=== PATIENT | female | born 1970 | race African-American/Black ===

== ENCOUNTER 2017-12-19 21:16 | Inpatient (IN) | payer OTHER ==
[2017-12-19 21:54] VITALS: BMI 60.8
--- NOTE | 2017-12-19 22:12 | HP ---
COWS - Scale Resting Pulse: 2= CT 101-120 Sweatin= Chills/Flushing Restless Observation: 1= Difficult to Sit Still Pupil Size: 1= Pupils >than Normal Bone or Joint Aches: 4=Acute Joint/Muscle Pain Runny Nose/ Eye Tearin= Nasal Congestion GI Upset > 30mins: 1= Stomach Cramp Tremor Observation: 2= Slight Tremor Visible Yawning Observation: 1= 1-2x During Session Anxiety or Irritability: 2=Irritable/Anxious Goose Flesh Skin: 0=Smooth Skin COWS Score: 16 Admission ROS S - HPI Chief Complaint: C/O WITHDRAWAL SX'S. SEEKING DETOX FOR HEROIN DEPENDENCE Allergies/Adverse Reactions: Allergies Allergy/AdvReac Type Severity Reaction Status Date / Time No Known Allergies Allergy Verified 12/19/17 22:06 History of Present Illness: 47 Y.O. FEMALE WITH HX/O OPIOID DEPENDENCE SEEKING DETOX. CLIENT WAS REFERRED BY [facility] AFTER PRESENT THERE FOR DETOX AND THEY WERE FULL. UTOX POSITIVE FOR MTD BUT CLIENT DENIES MMTP. STATES TOOK STREET METHADONE A FEW DAYS BACK. REPORTS LONGEST CLEAN TIME 5 YEARS. Exam Limitations: No Limitations - Ebola screening Have you traveled outside of the country in the last 21 days: No Have you had contact with anyone from an Ebola affected area: No Have you been sick,other than usual withdrawal symptoms: No Do you have a fever: No - Review of Systems Constitutional: Chills, Loss of Appetite, Malaise, Night Sweats, Changes in sleep EENT: reports: Nose Congestion, Dental Problems (MISSING TEETH) Respiratory: reports: No Symptoms reported Cardiac: reports: No Symptoms Reported GI: reports: Poor Appetite, Poor Fluid Intake, Abdominal cramping : reports: No Symptoms Reported Musculoskeletal: reports: Back Pain, Joint Pain, Neck Pain Integumentary: reports: No Symptoms Reported Neuro: reports: Headache Endocrine: reports: No Symptoms Reported Hematology: reports: No Symptoms Reported Psychiatric: reports: Depressed (DENIES SI/HI) Other Systems: Reviewed and Negative Patient History - Patient Medical History Hx Anemia: No Hx Asthma: No Hx Chronic Obstructive Pulmonary Disease (COPD): No Hx Cancer: No Hx Cardiac Disorders: No Hx Congestive Heart Failure: No Hx Hypertension: No Hx Hypercholesterolemia: No Hx Pacemaker: No HX Cerebrovascular Accident: No Hx Seizures: No Hx Dementia: No Hx Diabetes: No Hx Gastrointestinal Disorders: No Hx Liver Disease: No Hx Genitourinary Disorders: No Hx Sexually Transmitted Disorders: Yes (CHLAMYDIA TX'ED 1993) Hx Renal Disease (ESRD): No Hx Thyroid Disease: No Hx Human Immunodeficiency Virus (HIV): No Hx Hepatitis C: No Hx Depression: No Hx Suicide Attempt: No Hx Bipolar Disorder: No Hx Schizophrenia: No Other Medical History: FEELS DEPRESSED - Patient Surgical History Hx Section: Yes (X 1) Anesthesia Reaction: No - PPD History Previous Implant?: Yes Documented Results: Negative w/o proof Implanted On Prior R Admission?: No PPD to be Administered?: Yes - Reproductive History Patient is a Female of Child Bearing Age (11 -55 yrs old): Yes Last Menstrual Period: 11/10/17 LMP comment: IRREG Patient : No (NEG [facility] [place]) - Smoking Cessation Smoking history: Current every day smoker Have you smoked in the past 12 months: Yes Aproximately how many cigarettes per day: 5 Cigars Per Day: 0 Hx Chewing Tobacco Use: No Initiated information on smoking cessation: Yes 'Breaking Loose' booklet given: 12/19/17 - Substance & Tx. History Hx Alcohol Use: No Hx Substance Use: Yes Substance Use Type: Heroin Hx Substance Use Treatment: Yes ([facility]) - Substances Abused HEROIN Route: Inhalation Frequency: Daily Amount used: 5 BAGS Age of first use: 30 Date of Last Use: 12/19/17 Family Disease History - Family Disease History Family Disease History: Diabetes: Mother, Other: Father ( FROM GI ISSUES ) Admission Physical Exam BHS - Vital Signs Vital Signs: Vital Signs - 24 hr 12/19/17 21:48 Temperature 97 F L Pulse Rate 106 H Respiratory 18 Rate Blood Pressure 124/72 - Physical General Appearance: Yes: Appropriately Dressed, Tremorous, Other (MORBIDLY OBESE ) HEENTM: Yes: EOMI, Normocephalic, Normal Voice, MARTA, Pharynx Normal, Nasal Congestion, Other (MISSING TEETH) Respiratory: Yes: Chest Non-Tender, Lungs Clear, Normal Breath Sounds, No Respiratory Distress, No Accessory Muscle Use Neck: Yes: No masses,lesions,Nodules, Supple, Trachea in good position Breast: Yes: Breast Exam Deferred Cardiology: Yes: Regular Rhythm, S1, S2, Tachycardia Abdominal: Yes: Normal Bowel Sounds, Non Tender, Soft, Protuberent (GROSSLY) Genitourinary: Yes: Other (NO C/O) Back: Yes: Normal Inspection Musculoskeletal: Yes: full range of Motion, Gait Steady Extremities: Yes: Normal Capillary Refill, Normal Range of Motion, Non-Tender, Tremors 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, Fully Oriented, Alert, Motor Strength 5/5 Integumentary: Yes: Normal Color, Dry, Warm, Other (HYPERPIGMENTED PATCHES OF SKIN NOTED TO BLE) Lymphatic: Yes: Within Normal Limits - Diagnostic (1) Opioid dependence with withdrawal Current Visit: Yes Status: Chronic (2) Nicotine dependence Current Visit: Yes Status: Chronic Qualifiers: Nicotine product type: cigarettes Substance use status: uncomplicated Qualified Code(s): F17.210 - Nicotine dependence, cigarettes, uncomplicated (3) Morbidly obese Current Visit: Yes Status: Chronic Cleared for Admission [facility] - Detox or Rehab [facility] Level of Care: Medically Managed Detox Regimen/Protocol: Methadone Claeared for Rehab Admission: No S Breath Alcohol Content Breath Alcohol Content: 0 Urine Pregancy Test - Result Urine Test Results: Negative- NO Line Present Urine Drug Screen - Results Drug Screen Negative: No Urine Drug Screen Results: OPI-Opiates, MTD-Methadone, OXY-Oxycodone
[2017-12-19] MEDS ORDERED: IBUPROFEN 400 MG TABLET (FP) PO PRN (22:32)
[2017-12-19] MEDS ORDERED: MAGNESIUM CITRATE 300 ML BOTTLE PO PRN (22:32)
[2017-12-19] MEDS ORDERED: P-EPHED 60MG/TRIPROLIDI 2.5MG TABLET PO PRN (22:32)
[2017-12-19] MEDS ORDERED: MAG HYDROX/AL HYDROX/SIMETH 30 ML UNIT-DOSE CUP PO PRN (22:32)
[2017-12-19] MEDS ORDERED: ACETAMINOPHEN 325 MG TABLET (FP) PO PRN (22:32)
[2017-12-19] MEDS ORDERED: METHADONE HCL 10 MG TABLET (FOR DETOX USE ONLY) PO ONE ×2 (22:32→23:00)
[2017-12-19] MEDS ORDERED: MENTHOL/PHENOL 1 EACH UD MM PRN (22:32)
[2017-12-19] MEDS ORDERED: MAGNESIUM HYDROX 2400MG/30ML ORAL SUSPENSION 30 ML CUP PO PRN (22:32)
[2017-12-19] MEDS ORDERED: guaiFENesin/D-METHORPHAN HB 10 ML UNIT-DOSE CUPS PO PRN (22:32)
[2017-12-19] MEDS ORDERED: LOPERAMIDE HCL 2 MG CAPSULE PO PRN (22:32)
[2017-12-19] MEDS ORDERED: NICOTINE POLACRILEX 2 MG GUM BUC PRN (22:37)
[2017-12-19] MEDS: diazePAM 5 MG TABLET PO PRN (23:44)
[2017-12-20] MEDS: diazePAM 5 MG TABLET PO PRN (07:54)
--- NOTE | 2017-12-20 09:10 | CONSULT ---
[facility] Psychiatric Consult - Data Date of interview: 12/20/17 Admission source: [facility] Identifying data: This is 47 years old female, single, homeless, unemployed, on PA, with history of Opioids and Nicotine depednence, looking for detoxification protocol. Substance Abuse History: - Smoking Cessation. Smoking history: Current every day smoker. Have you smoked in the past 12 months: Yes. Aproximately how many cigarettes per day: 5. Cigars Per Day: 0. Hx Chewing Tobacco Use: No. Initiated information on smoking cessation: Yes. 'Breaking Loose' booklet given : 12/19/17. - Substance & Tx. History. Hx Alcohol Use: No. Hx Substance Use: Yes. Substance Use Type: Heroin. Hx Substance Use Treatment: Yes ([facility]). - Substances Abused. HEROIN. Route: Inhalation. Frequency: Daily. Amount used: 5 BAGS. Age of first use: 30. Date of Last Use: 12/19/17 Medical History: Obesity Psychiatric History: Patient reports history of depression anhd anxiety, reports taking prior to admission: Trazodone 150mg po qhs. Ambien 10mg po qhs Physical/Sexual Abuse/Trauma History: Denies, unclear Additional Comment: Trazodone 150mg po qhs. Ambien 10mg po qhs Mental Status Exam - Mental Status Exam Alert and Oriented to: Person Cognitive Function: Fair Patient Appearance: Unkempt Mood: Sad Affect: Flat Patient Behavior: Sedated Speech Pattern: Delayed Voice Loudness: Moderately Soft/Quiet Thought Process: Circumstantial Thought Disorder: Being Controlled Hallucinations: Denies Suicidal Ideation: Denies Homicidal Ideation: Denies Insight/Judgement: Fair Sleep: Difficulty falling asleep Appetite: Weight gain Muscle strength/Tone: Mild Hypotonicity Gait/Station: Shuffling Additional Comments: Trazodone 150mg po qhs. Ambien 10mg po qhs Psychiatric Findings - Problem List ([place] 1, 2,3) (1) Drug-induced mood disorder Current Visit: Yes Status: Acute (2) Nicotine dependence Current Visit: Yes Status: Chronic Qualifiers: Nicotine product type: cigarettes Substance use status: uncomplicated Qualified Code(s): F17.210 - Nicotine dependence, cigarettes, uncomplicated (3) Opioid dependence with withdrawal Current Visit: Yes Status: Chronic - Initial Treatment Plan Initial Treatment Plan: Trazodone 150mg po qhs. Ambien 10mg po qhs
--- NOTE | 2017-12-20 09:40 | PN ---
BHS COWS - Scale Resting Pulse: 0= [place] 80 or Below Sweatin= Chills/Flushing Restless Observation: 3= Extraneous Movement Pupil Size: 1= Pupils >than Normal Bone or Joint Aches: 2= Severe Diffuse Aches Runny Nose/ Eye Tearin= Runny Nose/Eyes GI Upset > 30mins: 2= Nausea/Diarrhea Tremor Observation of Outstretched Hands: 2= Slight Tremor Visible Yawning Observation: 1= 1-2x During Session Anxiety or Irritability: 2=Irritable/Anxious Goose Flesh Skin: 0=Smooth Skin COWS Score: 16 BHS Progress Note (SOAP) Subjective: ALERT,IRRITABLE,ANXIOUS,INTERRUPTED SLEEP,TREMOR,PAIN IN THE BODY,BACK, EXTREMITIES Objective: 12/20/17 09:38 Vital Signs Temperature 98.1 F 12/20/17 06:00 Pulse Rate 78 12/20/17 06:00 Respiratory Rate 20 12/20/17 06:00 Blood Pressure 104/56 12/20/17 06:00 O2 Sat by Pulse Oximetry (%) EKG SINUS TACHYCARDIA WITH OCCASIONAL VPC NO CHEST PAIN,NO SOB,NO DIZZINESS LABS PENDING Assessment: 12/20/17 09:39 WITHDRAWAL SYMPTOM Plan: CONTINUE DETOX
[2017-12-20] MEDS ORDERED: METHADONE HCL 10 MG TABLET (FOR DETOX USE ONLY) PO ONE (10:00)
[2017-12-20 10:09] LABS: HEMATOCRIT 41.5 % (32.4-45.2); HEMOGLOBIN 13.8 GM/dL (10.7-15.3); MCH 29.7 pg (25.7-33.7); MCHC 33.2 g/dl (32.0-36.0); MEAN CELL VOLUME 89.3 fl (80-96); MEAN PLT VOLUME 8.6 fl (7.5-11.1); PLATELET COUNT 234 K/MM3 (134-434); RBC 4.64 M/mm3 (3.60-5.2); RDW 14.2 % (11.6-15.6); WHITE BLOOD COUNT 7.3 K/mm3 (4.0-10.0)
[2017-12-20 10:25] LABS: CHLORIDE 105 mmol/L (98-107); POTASSIUM 3.8 mmol/L (3.5-5.1); SODIUM 142 mmol/L (136-145)
[2017-12-20 10:29] LABS: ALBUMIN 3.4 g/dl (3.4-5.0); ALK PHOS 82 U/L (45-117); ANION GAP 10 (8-16); BILIRUBIN,TOTAL 0.6 mg/dL (0.2-1.0); BLOOD UREA NITROGEN 17 mg/dL (7-18); CALCIUM 8.3 mg/dL (8.5-10.1); CO2 27 mmol/L (21-32); CREATININE 1.6 mg/dL (0.55-1.02); GLUCOSE,RANDOM 98 mg/dL (74-106); SGOT/AST 11 U/L (15-37); SGPT/ALT 9 U/L (12-78); TOT PROT 6.6 g/dl (6.4-8.2)
[2017-12-20] MEDS: CYCLOBENZAPRINE HCL 10 MG TABLET (FP) PO PRN (10:47)
[2017-12-20] MEDS: NICOTINE 14 MG/24 HOURS TOPICAL PATCH TD SCH (10:47)
[2017-12-20] MEDS: PRENATAL VITAMINS W/ FOLIC ACID TABLET (FP) PO SCH (10:47)
[2017-12-20] MEDS: cloNIDine HCL 0.1 MG TABLET PO SCH ×2 (10:47→22:18)
[2017-12-20] MEDS ORDERED: PNEUMOCOCCAL 23 VACCINE 0.5 ML VIAL IM ONE (12:00)
[2017-12-20] MEDS ORDERED: FLU VACCINE QUAD 60 MCG/0.5 ML (MDV 17-18) IM ONE (12:00)
[2017-12-20] MEDS ORDERED: PNEUMOC 13-VAL CONJ-DIP CRM/PF 0.5 ML DISP.SYRIN IM ONE (12:00)
--- NOTE | 2017-12-20 16:45 | EKG ---
Test Reason : Blood Pressure : / mmHG Vent. Rate : 104 BPM Atrial Rate : 104 BPM P-R Int : 158 ms QRS Dur : 112 ms QT Int : 378 ms P-R-T Axes : 086 016 042 degrees QTc Int : 497 ms SINUS TACHYCARDIA WITH OCCASIONAL PREMATURE VENTRICULAR COMPLEXES BIATRIAL ENLARGEMENT PULMONARY DISEASE PATTERN SEPTAL INFARCT , AGE UNDETERMINED ABNORMAL ECG NO PREVIOUS ECGS AVAILABLE Confirmed by VANESA HALL MD ([id number]) on 12/20/2017 4:44:36 PM Referred By: Confirmed By:VANESA HALL MD
[2017-12-20] MEDS: traZODone HCL 50 MG TABLET (FP) PO SCH (22:18)
[2017-12-20] MEDS: THIAMINE HCL 100 MG TABLET (FP) PO SCH (22:18)
--- NOTE | 2017-12-21 09:42 | PN ---
BHS COWS - Scale Resting Pulse: 0= [place] 80 or Below Sweatin= Chills/Flushing Restless Observation: 3= Extraneous Movement Pupil Size: 1= Pupils >than Normal Bone or Joint Aches: 2= Severe Diffuse Aches Runny Nose/ Eye Tearin= Runny Nose/Eyes GI Upset > 30mins: 3= Vomiting/Diarrhea Tremor Observation of Outstretched Hands: 2= Slight Tremor Visible Yawning Observation: 2= >3x During Session Anxiety or Irritability: 2=Irritable/Anxious Goose Flesh Skin: 0=Smooth Skin COWS Score: 18 BHS Progress Note (SOAP) Subjective: ALERT,IRRITABLE,ANXIOUS,INTERRUPTED SLEEP,PAIN IN THE BODY AND BACK Objective: 12/21/17 09:46 Vital Signs Temperature 97.5 F L 12/21/17 06:00 Pulse Rate 73 12/21/17 06:00 Respiratory Rate 18 12/21/17 06:30 Blood Pressure 132/77 12/21/17 06:00 O2 Sat by Pulse Oximetry (%) 12/21/17 09:46 Laboratory Last Values WBC 7.3 K/mm3 (4.0-10.0) 12/20/17 08:00 RBC 4.64 M/mm3 (3.60-5.2) 12/20/17 08:00 Hgb 13.8 GM/dL (10.7-15.3) 12/20/17 08:00 Hct 41.5 % (32.4-45.2) 12/20/17 08:00 MCV 89.3 fl (80-96) 12/20/17 08:00 MCH 29.7 pg (25.7-33.7) 12/20/17 08:00 MCHC 33.2 g/dl (32.0-36.0) 12/20/17 08:00 RDW 14.2 % (11.6-15.6) 12/20/17 08:00 Plt Count 234 K/MM3 (134-434) 12/20/17 08:00 MPV 8.6 fl (7.5-11.1) 12/20/17 08:00 Sodium 142 mmol/L (136-145) 12/20/17 08:00 Potassium 3.8 mmol/L (3.5-5.1) 12/20/17 08:00 Chloride 105 mmol/L (98-107) 12/20/17 08:00 Carbon Dioxide 27 mmol/L (21-32) 12/20/17 08:00 Anion Gap 10 (8-16) 12/20/17 08:00 BUN 17 mg/dL (7-18) 12/20/17 08:00 Creatinine 1.6 mg/dL (0.55-1.02) H 12/20/17 08:00 Creat Clearance w eGFR 34.55 (>60) 12/20/17 08:00 Random Glucose 98 mg/dL (74-106) 12/20/17 08:00 Calcium 8.3 mg/dL (8.5-10.1) L 12/20/17 08:00 Total Bilirubin 0.6 mg/dL (0.2-1.0) 12/20/17 08:00 AST 11 U/L (15-37) L 12/20/17 08:00 ALT 9 U/L (12-78) L 12/20/17 08:00 Alkaline Phosphatase 82 U/L (45-117) 12/20/17 08:00 Total Protein 6.6 g/dl (6.4-8.2) 12/20/17 08:00 Albumin 3.4 g/dl (3.4-5.0) 12/20/17 08:00 RPR Titer Nonreactive (NONREACTIVE) 12/20/17 08:00 Hep C Ab Diagnostic <0.1 s/co ratio (0.0-0.9) 12/20/17 08:00 Assessment: 12/21/17 09:47 WITHDRAWAL SYMPTOM Plan: CONTINUE DETOX,ENCOURAGE ORAL FLUID,REPEAT BMP IN AM
[2017-12-21] MEDS ORDERED: METHADONE HCL 5 MG TABLET (FOR DETOX USE ONLY) PO ONE (10:00)
[2017-12-21] MEDS: IBUPROFEN 600 MG TABLET (FP) PO PRN (11:12)
[2017-12-21] MEDS: CYCLOBENZAPRINE HCL 10 MG TABLET (FP) PO PRN ×2 (11:12→22:34)
[2017-12-21] MEDS: PRENATAL VITAMINS W/ FOLIC ACID TABLET (FP) PO SCH (11:12)
[2017-12-21] MEDS: cloNIDine HCL 0.1 MG TABLET PO SCH ×2 (11:13→22:34)
[2017-12-21] MEDS: NICOTINE 14 MG/24 HOURS TOPICAL PATCH TD SCH (11:21)
[2017-12-21] MEDS: diazePAM 5 MG TABLET PO PRN ×2 (14:00→22:34)
[2017-12-21 15:17] LABS: URINE APPEARANCE CLEAR; URINE BILIRUBIN NEGATIVE (NEGATIVE); URINE BLOOD 1+ (NEGATIVE); URINE COLOR YELLOW; URINE GLUCOSE (UA) NEGATIVE (NEGATIVE); URINE KETONE NEGATIVE (NEGATIVE); URINE LEUK ESTERASE TRACE (NEGATIVE); URINE NITRITE POSITIVE (NEGATIVE); URINE PROTEIN NEGATIVE (NEGATIVE); URINE UROBILINOGEN NEGATIVE mg/dL (0.2-1.0)
[2017-12-21 15:47] LABS: EPI CELLS RARE /HPF (FEW); URINE BACTERIA MANY /hpf (NONE SEEN)
[2017-12-21] MEDS: traZODone HCL 50 MG TABLET (FP) PO SCH (22:33)
[2017-12-21] MEDS: THIAMINE HCL 100 MG TABLET (FP) PO SCH (22:33)
[2017-12-21] MEDS: ZOLPIDEM TARTRATE 10 MG TABLET (PARK CARE ONLY) PO PRN (22:34)
[2017-12-22] MEDS ORDERED: METHADONE HCL 5 MG TABLET (FOR DETOX USE ONLY) PO ONE (10:00)
--- NOTE | 2017-12-22 10:49 | PN ---
S Progress Note (SOAP) Subjective: ALERT,IRRITABLE,ANXIOUS,INTERRUPTED SLEEP,PAIN IN THE BODY AND BACK Objective: 12/22/17 10:48 Vital Signs Temperature 97.9 F 12/22/17 06:00 Pulse Rate 53 L 12/22/17 06:00 Respiratory Rate 18 12/22/17 06:30 Blood Pressure 146/66 12/22/17 06:00 O2 Sat by Pulse Oximetry (%) Assessment: 12/22/17 10:49 WITHDRAWAL SYMPTOM Plan: CONTINUE DETOX
[2017-12-22] MEDS: PRENATAL VITAMINS W/ FOLIC ACID TABLET (FP) PO SCH (11:16)
[2017-12-22] MEDS: diazePAM 5 MG TABLET PO PRN ×2 (11:18→15:42)
[2017-12-22] MEDS: CYCLOBENZAPRINE HCL 10 MG TABLET (FP) PO PRN (11:19)
[2017-12-22] MEDS: cloNIDine HCL 0.1 MG TABLET PO SCH ×2 (11:19→22:29)
[2017-12-22] MEDS: IBUPROFEN 600 MG TABLET (FP) PO PRN (11:21)
[2017-12-22] MEDS: NICOTINE 14 MG/24 HOURS TOPICAL PATCH TD SCH (11:23)
[2017-12-22] MEDS: LIDOCAINE 5% TOPICAL PATCH TP SCH (13:02)
[2017-12-22] MEDS: IBUPROFEN 400 MG TABLET (FP) PO PRN ×2 (13:50→22:31)
[2017-12-22] MEDS: ZOLPIDEM TARTRATE 10 MG TABLET (PARK CARE ONLY) PO PRN (22:29)
[2017-12-22] MEDS: traZODone HCL 50 MG TABLET (FP) PO SCH (22:30)
[2017-12-22] MEDS: THIAMINE HCL 100 MG TABLET (FP) PO SCH (22:30)
[2017-12-22] MEDS: LIDOCAINE PATCH REMOVAL MC SCH (22:34)
[2017-12-23] MEDS ORDERED: hydrOXYzine PAMOATE 50 MG CAPSULE (FP) PO ONE (01:05)
[2017-12-23] MEDS ORDERED: METHADONE HCL 10 MG TABLET (FOR DETOX USE ONLY) PO ONE (10:00)
[2017-12-23] MEDS: cloNIDine HCL 0.1 MG TABLET PO SCH ×2 (11:16→22:10)
[2017-12-23] MEDS: PRENATAL VITAMINS W/ FOLIC ACID TABLET (FP) PO SCH (12:27)
[2017-12-23] MEDS: IBUPROFEN 400 MG TABLET (FP) PO PRN ×2 (12:27→22:12)
[2017-12-23] MEDS: NICOTINE 14 MG/24 HOURS TOPICAL PATCH TD SCH (12:30)
[2017-12-23] MEDS: LIDOCAINE 5% TOPICAL PATCH TP SCH (12:30)
--- NOTE | 2017-12-23 14:21 | PN ---
BHS Progress Note (SOAP) Subjective: alert coherent speech slow changing position obese Objective: 12/23/17 14:20 Vital Signs Temperature 98.9 F 12/23/17 14:14 Pulse Rate 91 H 12/23/17 14:14 Respiratory Rate 16 12/23/17 14:14 Blood Pressure 114/56 12/23/17 14:14 O2 Sat by Pulse Oximetry (%) Laboratory Last Values WBC 7.3 K/mm3 (4.0-10.0) 12/20/17 08:00 RBC 4.64 M/mm3 (3.60-5.2) 12/20/17 08:00 Hgb 13.8 GM/dL (10.7-15.3) 12/20/17 08:00 Hct 41.5 % (32.4-45.2) 12/20/17 08:00 MCV 89.3 fl (80-96) 12/20/17 08:00 MCH 29.7 pg (25.7-33.7) 12/20/17 08:00 MCHC 33.2 g/dl (32.0-36.0) 12/20/17 08:00 RDW 14.2 % (11.6-15.6) 12/20/17 08:00 Plt Count 234 K/MM3 (134-434) 12/20/17 08:00 MPV 8.6 fl (7.5-11.1) 12/20/17 08:00 Sodium 142 mmol/L (136-145) 12/20/17 08:00 Potassium 3.8 mmol/L (3.5-5.1) 12/20/17 08:00 Chloride 105 mmol/L (98-107) 12/20/17 08:00 Carbon Dioxide 27 mmol/L (21-32) 12/20/17 08:00 Anion Gap 10 (8-16) 12/20/17 08:00 BUN 17 mg/dL (7-18) 12/20/17 08:00 Creatinine 1.6 mg/dL (0.55-1.02) H 12/20/17 08:00 Creat Clearance w eGFR 34.55 (>60) 12/20/17 08:00 Random Glucose 98 mg/dL (74-106) 12/20/17 08:00 Calcium 8.3 mg/dL (8.5-10.1) L 12/20/17 08:00 Total Bilirubin 0.6 mg/dL (0.2-1.0) 12/20/17 08:00 AST 11 U/L (15-37) L 12/20/17 08:00 ALT 9 U/L (12-78) L 12/20/17 08:00 Alkaline Phosphatase 82 U/L (45-117) 12/20/17 08:00 Total Protein 6.6 g/dl (6.4-8.2) 12/20/17 08:00 Albumin 3.4 g/dl (3.4-5.0) 12/20/17 08:00 Urine Color Yellow 12/21/17 11:20 Urine Appearance Clear 12/21/17 11:20 Urine pH 5.0 (5.0-8.0) 12/21/17 11:20 Ur Specific Burns 1.012 (1.001-1.035) 12/21/17 11:20 Urine Protein Negative (NEGATIVE) 12/21/17 11:20 Urine Glucose (UA) Negative (NEGATIVE) 12/21/17 11:20 Urine Ketones Negative (NEGATIVE) 12/21/17 11:20 Urine Blood 1+ (NEGATIVE) H 12/21/17 11:20 Urine Nitrite Positive (NEGATIVE) 12/21/17 11:20 Urine Bilirubin Negative (NEGATIVE) 12/21/17 11:20 Urine Urobilinogen Negative mg/dL (0.2-1.0) 12/21/17 11:20 Ur Leukocyte Esterase Trace (NEGATIVE) 12/21/17 11:20 Urine WBC (Auto) 4 /hpf (3-5) 12/21/17 11:20 Urine RBC (Auto) <1 /hpf (0-3) 12/21/17 11:20 Ur Epithelial Cells Rare /HPF (FEW) 12/21/17 11:20 Urine Bacteria Many /hpf (NONE SEEN) 12/21/17 11:20 RPR Titer Nonreactive (NONREACTIVE) 12/20/17 08:00 Hep C Ab Diagnostic <0.1 s/co ratio (0.0-0.9) 12/20/17 08:00 lab noted Assessment: 12/23/17 14:20 mild withddrawal sx Plan: medically supervised detox
[2017-12-23] MEDS: CYCLOBENZAPRINE HCL 10 MG TABLET (FP) PO PRN (16:59)
[2017-12-23] MEDS: THIAMINE HCL 100 MG TABLET (FP) PO SCH (22:10)
[2017-12-23] MEDS: traZODone HCL 50 MG TABLET (FP) PO SCH (22:10)
[2017-12-23] MEDS: LIDOCAINE PATCH REMOVAL MC SCH (22:11)
[2017-12-24] MEDS ORDERED: METHADONE HCL 5 MG TABLET (FOR DETOX USE ONLY) PO ONE (06:00)
[2017-12-24] MEDS: CYCLOBENZAPRINE HCL 10 MG TABLET (FP) PO PRN (06:31)
[2017-12-24] MEDS: IBUPROFEN 400 MG TABLET (FP) PO PRN (06:32)
--- NOTE | 2017-12-24 09:10 | PN ---
S Progress Note (SOAP) Subjective: ALERT,NO COMPLAINT Objective: 12/24/17 09:09 Vital Signs Temperature 97.5 F L 12/24/17 06:56 Pulse Rate 64 12/24/17 06:56 Respiratory Rate 22 12/24/17 06:56 Blood Pressure 123/67 12/24/17 06:56 O2 Sat by Pulse Oximetry (%) Assessment: 12/24/17 09:09 DETOX COMPLETED,NO WITHDRAWAL SYMPTOM Plan: DISCHARGE TODAY,FOLLOW UP WITH AFTER CARE PROGRAM ARRANGEMENT
--- NOTE | 2017-12-24 09:19 | DS ---
[facility] Detox Discharge Summary Admission Date: 12/19/17 Discharge Date: 12/24/17 - History Present History: Opioid Dependence Additional Comments: FOLLOW UP WITH AFTER CARE PROGRAM ARRANGEMENT Pertinent Past History: NICOTINE DEPENDENCE MORBID OBESE - Physical Exam Results Vital Signs: Vital Signs Temperature 97.5 F L 12/24/17 06:56 Pulse Rate 64 12/24/17 06:56 Respiratory Rate 22 12/24/17 06:56 Blood Pressure 123/67 12/24/17 06:56 O2 Sat by Pulse Oximetry (%) Pertinent Admission Physical Exam Findings: WITHDRAWAL SIGNS AND SYMPTOM - Treatment Hospital Course: Detox Protocol Followed, Detoxed Safely, Responded well, Discharged Condition Good Patient has Accepted a Rehab Referral to: DECLINED - Medication Discharge Medications: Ambulatory Orders Trazodone HCl 150 mg PO HS 12/20/17 - Diagnosis (1) Opioid dependence with withdrawal Current Visit: Yes Status: Chronic (2) Morbidly obese Current Visit: Yes Status: Chronic (3) Nicotine dependence Current Visit: Yes Status: Chronic Qualifiers: Nicotine product type: cigarettes Substance use status: uncomplicated Qualified Code(s): F17.210 - Nicotine dependence, cigarettes, uncomplicated (4) Drug-induced mood disorder Current Visit: Yes Status: Acute - AMA Did Patient Leave Against Medical Advice: No
[2017-12-24] MEDS: PRENATAL VITAMINS W/ FOLIC ACID TABLET (FP) PO SCH (10:36)
[2017-12-24] MEDS: cloNIDine HCL 0.1 MG TABLET PO SCH (10:36)
[2017-12-24] MEDS: NICOTINE 14 MG/24 HOURS TOPICAL PATCH TD SCH (10:36)
[2017-12-24 12:09] VITALS: BP 119/57; PULSE 78; TEMP 96.6
[2017-12-24] MEDS: LIDOCAINE 5% TOPICAL PATCH TP SCH (13:16)
== END 2017-12-24 10:25 | disposition home or self-care (01) | DRG 773 ==
LOC: EDSEX → YASAS 21:16 → Y6N 22:19
PROVIDERS: ADMIT Internal Medicine; ATTEND Internal Medicine
PROC: HZ2ZZZZ Detoxification Services for Substance Abuse Treatment (ICD-10-PCS; principal; 2017-12-19)
DX: F11.23 Opioid dependence with withdrawal (principal); F17.210 Nicotine dependence, cigarettes, uncomplicated; F19.24 Other psychoactive substance dependence with psychoactive substance-induced mood disorder; E66.01 Morbid (severe) obesity due to excess calories; Z68.44 Body mass index [BMI] 60.0-69.9, adult
CPT/HCPCS: 36415; 80053; 81003; 81015; 85027; 86593; 90688; 90732; 93005; 93010; G0008; G0009; J0735